=== PATIENT | female | born 1975 | race Caucasian/White ===

== ENCOUNTER 2016-12-01 12:23 | Day surgery (SDC) | payer OTHER ==
[2016-11-27 12:55] VITALS: BMI 39.1
[2016-12-01] MEDS ORDERED: PROPOFOL 20 ML ONE ×3 (13:58→14:57)
[2016-12-01] MEDS ORDERED: SUCCINYLCHOLINE CHLORIDE 200 MG/10 ML VIAL ONE (13:58)
[2016-12-01] MEDS ORDERED: MIDAZOLAM HCL 2 MG/2 ML SINGLE DOSE VIAL ONE (13:58)
[2016-12-01] MEDS ORDERED: LIDOCAINE HCL/PF 2% SDV 5ML VIAL ONE (14:07)
--- NOTE | 2016-12-01 14:31 | HP ---
History & Physical Update - History History: No Change - Physical Physical: No Change - Assessment Assessment: No Change - Plan Plan: No Change
[2016-12-01] MEDS ORDERED: IBUPROFEN 800 MG/8 ML IJ IVPB PRN (14:34)
[2016-12-01] MEDS ORDERED: ACETAMINOPHEN 1000 MG/100 ML VIAL (NON FORMULARY) IVPB ONE (14:34)
[2016-12-01] MEDS ORDERED: DEXTROSE 5%-0.45% SALINE 1,000 ML IV SCH (14:45)
[2016-12-01] MEDS ORDERED: ceFAZolin SODIUM 1 GM VIAL ONE (14:51)
[2016-12-01] MEDS ORDERED: ceFAZolin SODIUM 1 GM VIAL IVPB ONE ×2 (14:58)
[2016-12-01] MEDS ORDERED: ONDANSETRON 4 MG/2 ML VIAL IVPUSH PRN (15:51)
[2016-12-01] MEDS ORDERED: oxyCODONE HCL 5 MG TABLET PO PRN ×2 (15:51)
[2016-12-01] MEDS ORDERED: IBUPROFEN 800 MG/8 ML IJ IVPB ONE (15:56)
[2016-12-01] MEDS ORDERED: LACTATED RINGERS SOLUTION 1,000 ML IV SCH (16:00)
[2016-12-01] MEDS ORDERED: ACETAMINOPHEN INJECTION 100 ML IVPB ONE (16:10)
[2016-12-01 16:45] VITALS: TEMP 97.8
[2016-12-01 17:29] VITALS: BP 146/98; PULSE 74
--- NOTE | 2016-12-02 13:16 | OP ---
DATE OF OPERATION: 12/01/2016 PREOPERATIVE DIAGNOSIS: Left renal pelvic stone. POSTOPERATIVE DIAGNOSIS: Left renal pelvic stone. PROCEDURE: Cystoscopy, right retrograde pyelogram, left ureteroscopic laser lithotripsy, and left ureteral stent placement. ANESTHESIA: General. FINDINGS: A normal right retrograde pyelogram and a large stone in the left renal pelvis. SPECIMENS: None. DRAINS: A 6 x 26 double-J ureteral stent on the left side. ESTIMATED BLOOD LOSS: About 20 mL SURGEON: Christian Ferguson MD PREOPERATIVE INDICATIONS: The patient is a 41-year-old female with years of left-sided flank pain. CT scan reveals a 14-mm stone in the left renal pelvis. There is a question of a phlebolith on the right side. However, her pain is primarily on the left, though occasionally, it is on the right. She comes to the OR. OPERATION: The patient was brought to the OR, placed on the table in supine position, given general anesthesia and IV antibiotics, and placed in the modified lithotomy position. The groin was prepped and draped sterilely. Cystoscopy was performed. Bladder was examined. The bladder appeared unremarkable. A right retrograde pyelogram was performed which was normal with no evidence of any filling defects or obstruction in the ureter. On the left side, a wire was placed up into the left kidney. A 10-Sinhala dual-lumen catheter was used to dilate the UO, and a ureteral sheath was placed without any resistance into the left ureter. A flexible ureteroscope was passed into the kidney. The stone was visualized. Using the holmium laser fiber, the stone was broken up into small passable fragments. The rest of the kidney appeared to be normal. The sheath was removed, and the scope was removed, examining the ureter which was noted to be intact. Over remaining wire, a 6 x 26 double-J ureteral stent was placed with 1 loop in the upper pole and a loop in the bladder. Bladder was emptied. Patient was awoken up. Jaime [id number]
== END 2016-12-01 17:05 | disposition home or self-care (01) ==
LOC: JASU-SURG 12:23
PROVIDERS: ATTEND Urology
PROC: 0TF48ZZ Fragmentation in Left Kidney Pelvis, Via Natural or Artificial Opening Endoscopic (ICD-10-PCS; principal; 2016-12-01 14:00)
PROC: 0T778DZ Dilation of Left Ureter with Intraluminal Device, Via Natural or Artificial Opening Endoscopic (ICD-10-PCS; 2016-12-01 14:00)
DX: N20.0 Calculus of kidney (principal)
CPT/HCPCS: 76000-TC; 84703; 94760